=== PATIENT | male | born 1970 | race Two or more races ===

== ENCOUNTER 2018-12-24 13:02 | Inpatient (IN) | payer SELFPAY ==
[~2018-12-24] VITALS: Ht 170.2 cm; Wt 68.5 kg
[2018-12-24 13:10] VITALS: BP 132/85
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
--- NOTE | 2018-12-24 13:25 | NUR ---
ED Nurse Note: Blood and urine sent to lab. Pt with MD at bedside.
[2018-12-24] MEDS ORDERED: Sodium Chloride 2,200 ML IVLG ONE (13:30)
[2018-12-24 13:35] LABS: APPEARANCE,URINE CLEAR; BILIRUBIN, URINE NEGATIVE (NEGATIVE); COLOR,URINE BROWN; GLUCOSE, URINE (UA) NEGATIVE (NEGATIVE); KETONES,URINE 2+ (NEGATIVE); LEUKOCYTE ESTERASE ,URINE 1+ (NEGATIVE); NITRITE,URINE NEGATIVE (NEGATIVE); PH,URINE 6 (4.5-8.0); PROTEIN,URINE 3+ (NEGATIVE); UROBILINOGEN,URINE 4 MG/DL (0.0-1.0)
--- NOTE | 2018-12-24 13:37 | Emergency Room Report ---
History of Present Illness General Chief Complaint: Altered Mental Status Source: EMS Present Illness HPI Patient brought in by paramedics for altered level of consciousness Patient was found on the ground No obvious signs of trauma at the scene patient here does not provide any input patient is moaning and making indistinguishable sounds During examination Airway appears intact however there is some fine crackles noted upon initial arrival There was no vomiting Allergies: Coded Allergies: UNABLE TO ASSESS (Unverified , 12/24/18) Patient History Limited by: medical condition Past Medical History: see triage record Reviewed Nursing Documentation: PMH: Agreed; PSxH: Agreed Nursing Documentation-PMH Past Medical History Deferred: Pt Cognitively Impaired Review of Systems All Other Systems: limited - Other than the ones mentioned in the history of present illness all others are reviewed however they do stay limited due to the patient's mental status Physical Exam Vital Signs Date Time Temp Pulse Resp B/P (MAP) Pulse Ox O2 Delivery O2 Flow Rate FiO2 12/24/18 12:59 98.2 108 18 120/84 (96) 98 Room Air Sp02 EP Interpretation: reviewed, normal General Appearance: moderate distress - Patient appears agitated decreased arousability Head: normocephalic, atraumatic Eyes: bilateral eye other - 3 mm sluggishly reactive ENT: normal pharynx Neck: supple Respiratory: no retraction, no accessory muscle use, crackles - Bilaterally Cardiovascular #1: tachycardia Gastrointestinal: soft, no mass Musculoskeletal: other - Patient moving all 4 extremities without focal deficit localizing towards physical stimuli Neurologic: responsive - To physical stimuli otherwise incomprehensible speech decreased response Skin: no rash Lymphatic: no adenopathy Procedures Critical Care Time Critical Care Time 40 minutes for initial altered presentation concern for neurological neurosurgical emergencies not including any procedural time Medical Decision Making ER Course Patient presents altered and confused Being considered including but not limited to neurological neurosurgical, infectious process, Alcohol and drug overdose/ingestion Patient maintaining appropriate airway at this time airway intubation has not been required Patient's alcohol level is significantly elevated Liver enzymes also mildly elevated with elevated lipase CT imaging and x-ray pending patient's care is being Endorsed to my oncoming physician and patient will require repeat evaluation and continue work-up Patient is initiated for further inpatient care given the significant alcohol ingestion Labs Test 12/24/18 13:14 12/24/18 13:30 White Blood Count 4.1 K/UL (4.8-10.8) Red Blood Count 5.61 M/UL (4.70-6.10) Hemoglobin 10.7 G/DL (14.2-18.0) Hematocrit 36.9 % (42.0-52.0) Mean Corpuscular Volume 66 FL (80-99) Mean Corpuscular Hemoglobin 19.1 PG (27.0-31.0) Mean Corpuscular Hemoglobin Concent 29.0 G/DL (32.0-36.0) Red Cell Distribution Width 20.1 % (11.6-14.8) Platelet Count 177 K/UL (150-450) Mean Platelet Volume 5.2 FL (6.5-10.1) Neutrophils (%) (Auto) % (45.0-75.0) Lymphocytes (%) (Auto) % (20.0-45.0) Monocytes (%) (Auto) % (1.0-10.0) Eosinophils (%) (Auto) % (0.0-3.0) Basophils (%) (Auto) % (0.0-2.0) Urine Color Brown Urine Appearance Clear Urine pH 6 (4.5-8.0) Urine Specific [place] 1.010 (1.005-1.035) Urine Protein 3+ (NEGATIVE) Urine Glucose (UA) Negative (NEGATIVE) Urine Ketones 2+ (NEGATIVE) Urine Blood 5+ (NEGATIVE) Urine Nitrite Negative (NEGATIVE) Urine Bilirubin Negative (NEGATIVE) Urine Urobilinogen 4 MG/DL (0.0-1.0) Urine Leukocyte Esterase 1+ (NEGATIVE) Urine RBC 60-80 /HPF (0 - 0) Urine WBC 0-2 /HPF (0 - 0) Urine Squamous Epithelial Cells Occasional /LPF Urine Bacteria None /HPF (NONE) Sodium Level 136 MMOL/L (136-145) Potassium Level 3.6 MMOL/L (3.5-5.1) Chloride Level 99 MMOL/L (98-107) Carbon Dioxide Level 22 MMOL/L (21-32) Anion Gap 15 mmol/L (5-15) Blood Urea Nitrogen 9 mg/dL (7-18) Creatinine 0.7 MG/DL (0.55-1.30) Estimat Glomerular Filtration Rate > 60 mL/min (>60) Glucose Level 101 MG/DL (74-106) Calcium Level 7.3 MG/DL (8.5-10.1) Total Bilirubin 1.9 MG/DL (0.2-1.0) Direct Bilirubin 1.4 MG/DL (0.0-0.3) Aspartate Amino Transf (AST/SGOT) 476 U/L (15-37) Alanine Aminotransferase (ALT/SGPT) 215 U/L (12-78) Alkaline Phosphatase 327 U/L (46-116) Total Creatine Kinase 232 U/L (26-308) Creatine Kinase MB 2.7 NG/ML (0.0-3.6) Creatine Kinase MB Relative Index 1.1 Troponin I 0.047 ng/mL (0.000-0.056) Total Protein 7.4 G/DL (6.4-8.2) Albumin 2.7 G/DL (3.4-5.0) Globulin 4.7 g/dL Albumin/Globulin Ratio 0.6 (1.0-2.7) Lipase 1210 U/L (73-393) Urine Opiates Screen Negative (NEGATIVE) Urine Barbiturates Screen Negative (NEGATIVE) Phencyclidine (PCP) Screen Negative (NEGATIVE) Urine Amphetamines Screen Negative (NEGATIVE) Urine Benzodiazepines Screen Negative (NEGATIVE) Urine Cocaine Screen Negative (NEGATIVE) Urine Marijuana (THC) Screen Negative (NEGATIVE) Serum Alcohol 585 mg/dL Arterial Blood pH 7.440 (7.350-7.450) Arterial Blood Partial Pressure CO2 30.8 mmHg (35.0-45.0) Arterial Blood Partial Pressure O2 77.3 mmHg (75.0-100.0) Arterial Blood HCO3 20.4 mmol/L (22.0-26.0) Arterial Blood Oxygen Saturation 92.2 % (95-100) Arterial Blood Base Excess -2.8 (-2-2) Eddy Test Positive Rhythm Strip Diag. Results EP Interpretation: yes Rate: 110 Rhythm: no PVC's, no ectopy, other - Sinus tach Last Vital Signs Date Time Temp Pulse Resp B/P (MAP) Pulse Ox O2 Delivery O2 Flow Rate FiO2 12/24/18 12:59 98.2 108 18 120/84 (96) 98 Room Air Status: improved Disposition: ADMITTED INPATIENT Condition: Critical Merna Freeman DO Dec 24, 2018 13:37
[2018-12-24 13:38] LABS: HEMATOCRIT 36.9 % (42.0-52.0); HEMOGLOBIN 10.7 G/DL (14.2-18.0); MEAN CORPUSCULAR VOLUME 66 FL (80-99); PLATELET COUNT 177 K/UL (150-450); RED BLOOD COUNT 5.61 M/UL (4.70-6.10); RED CELL DISTRIBUTION WIDTH 20.1 % (11.6-14.8); WHITE BLOOD COUNT 4.1 K/UL (4.8-10.8)
[2018-12-24 13:46] LABS: ANION GAP 15 mmol/L (5-15); BLOOD UREA NITROGEN 9 mg/dL (7-18); CALCIUM 7.3 MG/DL (8.5-10.1); CARBON DIOXIDE 22 MMOL/L (21-32); CHLORIDE 99 MMOL/L (98-107); CREATININE 0.7 MG/DL (0.55-1.30); POTASSIUM 3.6 MMOL/L (3.5-5.1); SODIUM 136 MMOL/L (136-145)
--- NOTE | 2018-12-24 13:47 | NUR ---
ED Nurse Note: RT with pt. O2 94%
[2018-12-24 14:00] LABS: ALANINE AMINOTRANSFERASE 215 U/L (12-78); ALBUMIN 2.7 G/DL (3.4-5.0); ALBUMIN/GLOBULIN RATIO 0.6 (1.0-2.7); ALKALINE PHOSPHATASE 327 U/L (46-116); ASPARTATE AMINO TRANSFERASE 476 U/L (15-37); BILIRUBIN,DIRECT 1.4 MG/DL (0.0-0.3); BILIRUBIN,TOTAL 1.9 MG/DL (0.2-1.0); CKMB 2.7 NG/ML (0.0-3.6); CREATINE KINASE 232 U/L (26-308)
[2018-12-24 14:08] VITALS: BP 129/80
--- NOTE | 2018-12-24 14:08 | NUR ---
ED Nurse Note: Chest x-ray complete. Pt sent to CT.
[2018-12-24] MEDS ORDERED: Midazolam 2mg/2ml Inj IVP ONE ×3 (15:45→17:45)
[2018-12-24] MEDS ORDERED: UNOBMED (16:16)
--- NOTE | 2018-12-24 17:12 | Diagnostic Imaging Report ---
Indications: Altered mental status Technique: Spiral acquisitions obtained through the brain. Angled axial and coronal 5 x 5 mm slices were reconstructed. Total dose length product 1172 mGycm. CTDI vol(s) 60 mGy. Dose reduction achieved using automated exposure control Comparison: None. Findings: There is equivocal slight thickening of the posterior falx which if real could indicate a tiny parafalcine subdural hematoma. This measures less than 1 mm thick. No mass effect nor midline shift. Normal leroy-white differentiation. Normal size ventricles and extra-axial CSF spaces. Visualized orbits are unremarkable. There is an acuity indeterminate nasal fracture deformity. There is sphenoid and ethmoid sinus disease. There is an acuity indeterminate inferior orbital floor fracture deformity on the left. This demonstrates some herniation of the inferior rectus muscle into the defect. Impression: Doubt but cannot exclude small posterior parafalcine subdural hematoma. No significant mass effect No acute intracranial bleed or mass effect otherwise Age-indeterminate nasal and inferior orbital wall fracture deformities This agrees with the preliminary interpretation provided overnight by [facility], with some additional findings. The CT scanner at [facility] is accredited by the [employer] and the scans are performed using protocols designed to limit radiation exposure to as low as reasonably achievable to attain images of sufficient resolution adequate for diagnostic evaluation.
--- NOTE | 2018-12-24 17:16 | NUR ---
Face sheet and CT report faxed to [facility].
[2018-12-24] MEDS ORDERED: Piperacillin/Tazobactam 3.375 GM in NS 110 ML IVPB ONE (17:30)
[2018-12-24] MEDS ORDERED: Vancomycin 1 GM in D5W 275 ML IVPB ONE (17:30)
--- NOTE | 2018-12-24 17:44 | Emergency Room Report ---
Physical Exam Please see addenda on Dr. Freeman's note. This is mainly to document additional diagnoses. Vital Signs Date Time Temp Pulse Resp B/P (MAP) Pulse Ox O2 Delivery O2 Flow Rate FiO2 12/24/18 12:59 98.2 108 18 120/84 (96) 98 Room Air Sp02 EP Interpretation: reviewed, normal General Appearance: lethargic, other - Alcohol smell and disheveled Eyes: bilateral eye PERRL, bilateral eye abnormal EOM, bilateral eye Scleral Injection ENT: dry mucus membranes Neck: full range of motion, supple Respiratory: lungs clear, normal breath sounds Cardiovascular #1: regular rate, rhythm, no edema Cardiovascular #2: 2+ radial (R) Gastrointestinal: non tender, decreased bowel sounds, overweight Musculoskeletal: normal range of motion Neurologic: responsive, other - Lethargic Psychiatric: other Skin: no rash Critical Care Time Critical Care Time Total Critical Care Time: 90 alcohol intoxication, pancreatitis, min bedside evaluation and treatment excludes procedures (EKG). Reason for critical care: Possible subdural hematoma, sedation for CT scans treatment of elevated lactic acid fluid resuscitation, antibiotics, Possible complications: hypotension, hypertension, [place], shock, arrhythmias, metabolic acidosis, end organ damage, respiratory failure. Interventions: Versed sedation, repeated evaluations, discussion with [facility], discussion with admitting physician, discussion with radiology, Course: Patient signed out to me for admission with alcohol intoxication and pancreatitis. CT is pending. Several times that CT scan undertaken. Sedation for CT undertaken. CT head with possible subdural. Resented to [facility] and declined. Discovered elevated lactic acid. Fluid resuscitation continued. Antibiotics prophylactically begun. After initial sedation patient with some respiratory compromise and needing intervention withdrawal left. This resolved spontaneously. CT the abdomen reviewed. Discussed with admitting physician. Improved but still delirious. Risk of alcohol withdrawal noted. Thiamine ordered. Consultations: nursing staff, radiology techs, admitting physician, [facility] neurosurgeon, respiratory therapy Tolerated well condition = critical Medical Decision Making Diagnostic Impression: Primary Impression: Alcohol poisoning Qualified Codes: T51.94XA - Toxic effect of unspecified alcohol, undetermined , initial encounter Additional Impressions: Altered mental status Qualified Codes: R41.82 - Altered mental status, unspecified Subdural hematoma - parafalcian - possible Elevated lactic acid level Pancreatitis Qualified Codes: K85.20 - Alcohol induced acute pancreatitis without necrosis or infection Elevated liver function tests ER Course Please see notes an addendum on 's note. At least [address] scan undertaken. Finally able to perform with sedation. CO2 monitoring and pulse oximetry while patient in CT scan. Patient stable after sedation for CT scans. Requesting water and perseverating. Discussed with Dr. Olivarez and patient admitted to telemetry. Risk of alcohol withdrawal noted. Discussion of subdural with [facility] led to non-transfer and supportive medical treatment. Consideration of MRI. Elevated lactic acid treated with IV hydration. No identified source of infection. Prophylactic antibiotics started. Thiamine given. Improved but still delirious. Admitted to telemetry. Laboratory Tests Test 12/24/18 13:14 12/24/18 13:30 12/24/18 15:36 12/24/18 18:25 White Blood Count 4.1 K/UL (4.8-10.8) L Red Blood Count 5.61 M/UL (4.70-6.10) Hemoglobin 10.7 G/DL (14.2-18.0) L Hematocrit 36.9 % (42.0-52.0) L Mean Corpuscular Volume 66 FL (80-99) L Mean Corpuscular Hemoglobin 19.1 PG (27.0-31.0) L Mean Corpuscular Hemoglobin Concent 29.0 G/DL (32.0-36.0) L Red Cell Distribution Width 20.1 % (11.6-14.8) H Platelet Count 177 K/UL (150-450) Mean Platelet Volume 5.2 FL (6.5-10.1) L Neutrophils (%) (Auto) % (45.0-75.0) Lymphocytes (%) (Auto) % (20.0-45.0) Monocytes (%) (Auto) % (1.0-10.0) Eosinophils (%) (Auto) % (0.0-3.0) Basophils (%) (Auto) % (0.0-2.0) Differential Total Cells Counted 100 Neutrophils % (Manual) 58 % (45-75) Lymphocytes % (Manual) 33 % (20-45) Monocytes % (Manual) 8 % (1-10) Eosinophils % (Manual) 0 % (0-3) Basophils % (Manual) 1 % (0-2) Band Neutrophils 0 % (0-8) Platelet Estimate Adequate Platelet Morphology Normal Hypochromasia 2+ Anisocytosis 2+ Microcytosis 3+ Urine Color Brown Urine Appearance Clear Urine pH 6 (4.5-8.0) Urine Specific [place] 1.010 (1.005-1.035) Urine Protein 3+ (NEGATIVE) H Urine Glucose (UA) Negative (NEGATIVE) Urine Ketones 2+ (NEGATIVE) H Urine Blood 5+ (NEGATIVE) H Urine Nitrite Negative (NEGATIVE) Urine Bilirubin Negative (NEGATIVE) Urine Urobilinogen 4 MG/DL (0.0-1.0) H Urine Leukocyte Esterase 1+ (NEGATIVE) H Urine RBC 60-80 /HPF (0 - 0) H Urine WBC 0-2 /HPF (0 - 0) Urine Squamous Epithelial Cells Occasional /LPF Urine Bacteria None /HPF (NONE) Sodium Level 136 MMOL/L (136-145) Potassium Level 3.6 MMOL/L (3.5-5.1) Chloride Level 99 MMOL/L (98-107) Carbon Dioxide Level 22 MMOL/L (21-32) Anion Gap 15 mmol/L (5-15) Blood Urea Nitrogen 9 mg/dL (7-18) Creatinine 0.7 MG/DL (0.55-1.30) Estimate Glomerular Filtration Rate > 60 mL/min (>60) Glucose Level 101 MG/DL (74-106) Calcium Level 7.3 MG/DL (8.5-10.1) L Total Bilirubin 1.9 MG/DL (0.2-1.0) H Direct Bilirubin 1.4 MG/DL (0.0-0.3) H Aspartate Amino Transferase (AST) 476 U/L (15-37) H Alanine Aminotransferase (ALT) 215 U/L (12-78) H Alkaline Phosphatase 327 U/L (46-116) H Total Creatine Kinase 232 U/L (26-308) Creatine Kinase MB 2.7 NG/ML (0.0-3.6) Creatine Kinase MB Relative Index 1.1 Troponin I 0.047 ng/mL (0.000-0.056) Total Protein 7.4 G/DL (6.4-8.2) Albumin 2.7 G/DL (3.4-5.0) L Globulin 4.7 g/dL Albumin/Globulin Ratio 0.6 (1.0-2.7) L Lipase 1210 U/L (73-393) H Urine Opiates Screen Negative (NEGATIVE) Urine Barbiturates Screen Negative (NEGATIVE) Phencyclidine (PCP) Screen Negative (NEGATIVE) Urine Amphetamines Screen Negative (NEGATIVE) Urine Benzodiazepines Screen Negative (NEGATIVE) Urine Cocaine Screen Negative (NEGATIVE) Urine Marijuana (THC) Screen Negative (NEGATIVE) Serum Alcohol 585 mg/dL Arterial Blood pH 7.440 (7.350-7.450) Arterial Blood Partial Pressure CO2 30.8 mmHg (35.0-45.0) L Arterial Blood Partial Pressure O2 77.3 mmHg (75.0-100.0) Arterial Blood HCO3 20.4 mmol/L (22.0-26.0) L Arterial Blood Oxygen Saturation 92.2 % (95-100) L Arterial Blood Base Excess -2.8 (-2-2) L Eddy Test Positive Lactic Acid Level 5.00 mmol/L (0.4-2.0) H 5.40 mmol/L (0.66-2.22) H Ammonia 24 umol/L (11-32) Rhythm Strip Diag. Results EP Interpretation: yes Rhythm: no PVC's, no ectopy, other - Sinus tachycardia Chest X-Ray Diagnostic Results Chest X-Ray Diagnostic Results : Chest X-Ray Ordered: Yes # of Views/Limited/Complete: 1 View Indication: Other EP Interpretation: Yes Interpretation: no consolidation, no effusion, no pneumothorax Impression: No acute disease Electronically Signed by: Electronically signed by Hans Patel MD CT/MRI/US Diagnostic Results CT/MRI/US Diagnostic Results #1: Imaging Test Ordered: Head Impression Impression: - Possible thin posterior parafalcine 0.1cm thick subdural hematoma. - No mass effect or shift. - Otherwise unremarkable intracranial structures. - Right scalp possible small hematoma. - Minimal cerebrovascular ASVD. CT/MRI/US Diagnostic Results #2: Imaging Test Ordered: Abdomen pelvis Impression Scattered groundglass nodular opacities in the dependent left base could represent some component of atelectasis, although aspiration or pneumonia could have this appearance as well. This can be followed on subsequent imaging. -Right base ill-defined groundglass 0.9 cm nodule axial image 2. - Recommend outpatient unenhanced CT chest in 2-3 weeks to further evaluate lung findings. -Severely distended urinary bladder, which could be a cause for patient's pain. -Normal appendix. -Tiny punctate 0.1 cm calcification within the uterus along the expected course of the penile urethra axial image 147 could represent a small stone within the urethra. -Otherwise no acute abnormality identified to account for patient's presentation. -At least 5 right nonobstructing nephroliths measuring up to 0.6 cm. -At least 5 left nonobstructing nephroliths measuring up to 0.5 cm. -Large nonobstructed hiatal hernia. -Hepatic steatosis, correlate to exclude steatohepatitis. -Hyperdense gallbladder contents could represent vicarious excretion of contrast if there has been a recent contrast-enhanced study, alternatively this could represent gallbladder sludge. No findings to suggest acute cholecystitis. -Left adrenal 3.4cm benign myelolipoma with coleen fat attenuation. -Scattered ASVD. -Multilevel age-related degenerative spine findings osteopenia. Last Vital Signs Date Time Temp Pulse Resp B/P (MAP) Pulse Ox O2 Delivery O2 Flow Rate FiO2 12/25/18 00:00 130 12/25/18 00:00 98.0 20 150/70 (96) 96 12/24/18 20:30 Room Air Status: improved Disposition: ADMITTED INPATIENT Condition: Critical Referrals: NOT CHOSEN IPA/,REFERRING (PCP) Hans Patel MD Dec 24, 2018 17:44
--- NOTE | 2018-12-24 17:52 | NUR ---
To CT-abdomen on a stretcher.
[2018-12-24] MEDS ORDERED: Thiamine HCl 100 MG in D5W 55 ML IVPB STA (18:36)
--- NOTE | 2018-12-24 18:45 | NUR ---
ED Nurse Note: Pt is awake and is resting well.
--- NOTE | 2018-12-24 18:48 | Diagnostic Imaging Report ---
Indication: Abdominal pain Technique: Spiral acquisitions obtained through the abdomen and pelvis. No oral contrast utilized, per emergency room physician request No IV contrast utilized, per emergency room physician request.. Multiplanar reconstructions were generated. Total dose length product 1194 mGycm. CTDIvol(s) 20 mGy. Dose reduction achieved using automated exposure control Comparison: None Findings: The appendix is normal. Mural fat is seen in the wall of the ascending colon. There is no evidence of diverticulosis or diverticulitis. No small bowel distention. No free or loculated intraperitoneal gas or fluid is evident. There is a large hiatal hernia which contains over half of the stomach. The duodenum is unremarkable. Lack of IV contrast limits assessment of the solid organs. The liver is markedly hypoattenuating. It is somewhat enlarged. No gross focal abnormality. The gallbladder, bile ducts, pancreas, spleen, right adrenal are unremarkable. The left adrenal demonstrates a fat attenuation 3.4 cm mass. Both kidneys demonstrate calyceal calculi. There is nonspecific perinephric fat stranding bilaterally. No ureteral calculi, hydronephrosis, or hydroureter demonstrated. The bladder is distended. No pelvic mass or adenopathy. There are one or more punctate calcifications within the penis. Included lung bases demonstrate a peripheral 5 mm opacity in the left lower lobe. The highest cuts demonstrate an incompletely included 12 mm area of groundglass opacity in the right lower lobe. Atelectatic changes and areas of pleural thickening are seen in the inferior left lung. The bones demonstrate mild degenerative spondylosis changes. Impression: No definite acute process Large hiatal hernia Enlarged fatty liver Left adrenal myelolipoma Nonobstructive bilateral intrarenal calculi Bilateral basilar pulmonary opacities. Recommend follow-up CT in 6-12 months Distended bladder Now calcifications. Suspect that these represent physiologic corporal calcifications although the possibility of intraureteral calculi should also be considered. This agrees with the preliminary interpretation provided overnight by [email or web address]. The CT scanner at [facility] is accredited by the [employer] and the scans are performed using protocols designed to limit radiation exposure to as low as reasonably achievable to attain images of sufficient resolution adequate for diagnostic evaluation.
--- NOTE | 2018-12-24 19:20 | NUR ---
HAND-OFF: Report given to JUANA Jessica.
--- NOTE | 2018-12-24 19:21 | NUR ---
ED Nurse Note: report received from jamie quiñonez .pt in bed VSS
--- NOTE | 2018-12-24 19:44 | NUR ---
ED Nurse Note: Report given to JUANA Isbell
--- NOTE | 2018-12-24 19:50 | NUR ---
ED Nurse Note: pt was brought up to room 239 accompanied by RN and planetarium technician with monitor box in stable condition. Belonging list signed.
[2018-12-24 20:00] VITALS: BP 150/95
--- NOTE | 2018-12-24 20:00 | NUR ---
NURSE NOTES: Pt admitted from ER. Given report from JUANA Jessica. Pt is resting on the bed and drowsy and confused and agitated. Unable to communicate and not answer the question. Unable to get any information at this time. Given realty orientation. IV site intact and no sign of infiltration noted. Applied Tele monitor. Cleaned Pt and applied lotion and cream. On Room air and no sign of respiratory distress noted. Checked belonging list. Given admission instruction and smoking cessation but he doesn't understand at this time. Placed fall precaution. Admission order received from Dr. Olivarez by previous nurse. Will continue to monitor any change of condition.
[2018-12-24] MEDS: D5 1/2NS w/KCl 30mEq 1000ml 1,000 ML IV SCH (21:00)
[2018-12-24] MEDS ORDERED: Folic Acid 1 MG, Magnesium Sulfate 2,000 MG, Multivitamin - 12 Injection 10 ML in Sodiu... IV SCH (22:00)
[2018-12-24] MEDS: LORazepam Inj 2mg/ml 1ml IV PRN (23:28)
--- NOTE | 2018-12-24 23:28 | NUR ---
NURSE NOTES: Pt is resting on the bed and confused agitated and anxious and resisting care. Given realty orientation but doesn't understand. Given ativan as ordered. Pt strongly refused insert Strange cath. Explained benefits and risks. On Tele monitor with ST. Will continue to monitor any change of condition.
[2018-12-25] VITALS: BP 150/70
--- NOTE | 2018-12-25 01:00 | NUR ---
NURSE NOTES: Pt is resting on the bed and still agitated and anxious. Still strongly refused insert Strange cath at this time. Will continue to monitor any change of condition.
[2018-12-25] MEDS: Piperacillin/Tazobactam 3.375 GM in NS 110 ML IVPB SCH ×3 (01:58→18:07)
--- NOTE | 2018-12-25 02:00 | NUR ---
NURSE NOTES: Pt void 900cc urine but noted hematuria. MD aware. Will continue to monitor any change of condition.
[2018-12-25] MEDS: D5 1/2NS w/KCl 30mEq 1000ml 1,000 ML IV SCH ×4 (03:40→23:40)
[2018-12-25 04:00] VITALS: BP 134/70
[2018-12-25 05:11] LABS: BASOPHILS % (AUTO) 1.6 % (0.0-2.0); EOSINOPHILS % (AUTO) 0.1 % (0.0-3.0); HEMATOCRIT 28.1 % (42.0-52.0); HEMOGLOBIN 8.4 G/DL (14.2-18.0); LYMPHOCYTES % (AUTO) 8.5 % (20.0-45.0); MEAN CORPUSCULAR VOLUME 66 FL (80-99); MONOCYTES % (AUTO) 8.1 % (1.0-10.0); NEUTROPHILS % (AUTO) 81.8 % (45.0-75.0); PLATELET COUNT 139 K/UL (150-450); RED BLOOD COUNT 4.26 M/UL (4.70-6.10); RED CELL DISTRIBUTION WIDTH 19.7 % (11.6-14.8); WHITE BLOOD COUNT 9.2 K/UL (4.8-10.8)
[2018-12-25 05:51] LABS: ALANINE AMINOTRANSFERASE 176 U/L (12-78); ALBUMIN 2.2 G/DL (3.4-5.0); ALBUMIN/GLOBULIN RATIO 0.5 (1.0-2.7); ALKALINE PHOSPHATASE 258 U/L (46-116); AMYLASE 69 U/L (25-115); ANION GAP 12 mmol/L (5-15); ASPARTATE AMINO TRANSFERASE 348 U/L (15-37); BILIRUBIN,TOTAL 1.8 MG/DL (0.2-1.0); BLOOD UREA NITROGEN 9 mg/dL (7-18); CALCIUM 6.9 MG/DL (8.5-10.1); CARBON DIOXIDE 21 MMOL/L (21-32); CHLORIDE 103 MMOL/L (98-107); CREATINE KINASE 184 U/L (26-308); CREATININE 0.7 MG/DL (0.55-1.30); POTASSIUM 3.8 MMOL/L (3.5-5.1); SODIUM 136 MMOL/L (136-145)
[2018-12-25] MEDS: LORazepam Inj 2mg/ml 1ml IV PRN ×4 (06:19→21:38)
[2018-12-25 06:28] LABS: BILIRUBIN,DIRECT 0.9 MG/DL (0.0-0.3)
--- NOTE | 2018-12-25 06:30 | NUR ---
NURSE NOTES: Pt is resting on the bed and awake and confused and agitated. Pt Pulled out of IV. Reminded Pt do not remove IV but he doesn't understand. Still noted Tachycardia HR 130-140's. Still noted hematuria and refused insert Strange cath. Notified Dr. Olivarez.
[2018-12-25] MEDS ORDERED: LORazepam Inj 2mg/ml 1ml IM SCH (07:00)
--- NOTE | 2018-12-25 07:10 | NUR ---
NURSE NOTES: RECEIVED BED SIDE REPORT FROM FROM [facility] AIDE OF NOC SHIFT. RECEIVE PT RESTING IN BED COMFORTABLY AT THIS TIME.NO EVIDENCE OF AGITATION NOTED AT THIS TIME.PT RECEIVING IVF,S D51/2 NS WITH 20MEQ OF KCL @ 150cc/hrs CONNECT TO H.L ON RT HAND.IVF,S INFUSSING WELL. PT IS NPO AT THIS TIME PER M.D ORDERS.WILL CONT TO MONITOR.
--- NOTE | 2018-12-25 07:31 | NUR ---
HAND-OFF: Report given to JUANA Arora. Pt is resting on the bed and no sign of acute distress noted.
[2018-12-25 08:00] VITALS: BP 130/70
[2018-12-25] MEDS: Pantoprazole Inj IVP SCH (10:22)
[2018-12-25 12:00] VITALS: BP 150/99
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
[2018-12-25 16:00] VITALS: BP 150/96
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
--- NOTE | 2018-12-25 19:30 | NUR ---
NURSE NOTES: Given report from Ulysses, Pt is resting on the bed and awake and confused agitated. Given realty orientation. IV site intact and no sign of infiltration noted. Reminded Pt do not remove IV line by himself. Denied Pain at this time. On clear liquid diet and tolerated well. According to previous nurse, Pt has episode of fever. Notified to Dr. Olivarez. Will continue to monitor any change of condition.
[2018-12-25 20:00] VITALS: BP 150/98
[2018-12-25] MEDS: Thiamine 100mg IVPB (Q24H) IVPB SCH ×2 (21:58)
[2018-12-25] MEDS: Folic Acid 1 MG, Magnesium Sulfate 2,000 MG, Multivitamin - 12 Injection 10 ML in Sodiu... IV SCH (21:58)
[2018-12-26] VITALS: BP 137/93
[2018-12-26] MEDS: Piperacillin/Tazobactam 3.375 GM in NS 110 ML IVPB SCH ×3 (02:02→18:41)
--- NOTE | 2018-12-26 02:30 | History and Physical Report ---
DATE OF ADMISSION: 12/24/2018 PERTINENT HISTORY: The patient brought in with altered level of consciousness and high alcohol level. He was found to have elevated lipase and elevated lactic acid. The patient is now alert and states he has history of hypertension, hyperlipidemia, and a stroke 3 months ago or 4 months ago with right-sided weakness. He had apparently seizures in the past. It is not clear if they are of alcohol withdrawal. PAST MEDICAL AND SURGICAL HISTORY: Past surgeries none. ALLERGIES: None known. HOME MEDICATIONS: Amlodipine, atorvastatin, aspirin. SYSTEM REVIEW: HEAD, EYES, EARS, NOSE, THROAT: Vision and hearing is good. ENDOCRINE: No known diabetes or thyroid disease. PULMONARY: No chronic cough or asthma. CARDIAC: No known angina or MS. GASTROINTESTINAL: No GI bleeding in the past. He has some vague abdominal discomfort. Denies nausea or vomiting. He was vomiting last night. GENITOURINARY: No difficulty voiding or dysuria. NEUROLOGIC: See history of present illness. PHYSICAL EXAMINATION: GENERAL: The patient is lying in bed, asking to eat. VITAL SIGNS: Temperature 98, pulse 130, respirations 20, blood pressure 130/70. HEAD, EYES, EARS, NOSE, THROAT: Oral mucosa is moist. There is faint scleral icterus. NECK: No adenopathy. LUNGS: Clear. HEART: Regular rhythm and tachycardic. ABDOMEN: Soft. I am unable to feel liver or spleen edge. EXTREMITIES: No edema, cyanosis, or clubbing. NEUROLOGIC: He is alert and responsive. Ocular motions intact in all directions. Smile symmetric. Tongue is midline. He moves all extremities. Note, he has received multiple doses of Ativan prior to my exam. LABORATORY DATA: Labs were reviewed. IMPRESSION: 1. Alcoholism and at risk for alcoholic withdrawal. 2. Pancreatitis, acute. 3. Elevated lactic acid, likely due to alcoholic lactic acidosis. PLAN: Vigorous IV hydration. Empiric antibiotics. Benzodiazepines for alcohol withdrawal. we will start clear liquids. Say Olivarez M.D. DR: Marilyn JOB#: [id number] CC:
[2018-12-26 04:00] VITALS: BP 150/98
[2018-12-26 04:27] LABS: BASOPHILS % (AUTO) 1.6 % (0.0-2.0); EOSINOPHILS % (AUTO) 1.1 % (0.0-3.0); HEMATOCRIT 30.9 % (42.0-52.0); HEMOGLOBIN 9.2 G/DL (14.2-18.0); LYMPHOCYTES % (AUTO) 14.5 % (20.0-45.0); MEAN CORPUSCULAR VOLUME 66 FL (80-99); MONOCYTES % (AUTO) 7.8 % (1.0-10.0); NEUTROPHILS % (AUTO) 75.1 % (45.0-75.0); PLATELET COUNT 140 K/UL (150-450); RED BLOOD COUNT 4.65 M/UL (4.70-6.10); RED CELL DISTRIBUTION WIDTH 20.7 % (11.6-14.8); WHITE BLOOD COUNT 5.1 K/UL (4.8-10.8)
[2018-12-26 05:12] LABS: ALANINE AMINOTRANSFERASE 157 U/L (12-78); ALBUMIN 2.3 G/DL (3.4-5.0); ALBUMIN/GLOBULIN RATIO 0.5 (1.0-2.7); ALKALINE PHOSPHATASE 290 U/L (46-116); ANION GAP 8 mmol/L (5-15); ASPARTATE AMINO TRANSFERASE 312 U/L (15-37); BILIRUBIN,TOTAL 2.9 MG/DL (0.2-1.0); BLOOD UREA NITROGEN 5 mg/dL (7-18); CALCIUM 7.5 MG/DL (8.5-10.1); CARBON DIOXIDE 24 MMOL/L (21-32); CHLORIDE 97 MMOL/L (98-107); CREATININE 0.7 MG/DL (0.55-1.30); POTASSIUM 3.6 MMOL/L (3.5-5.1); SODIUM 129 MMOL/L (136-145)
[2018-12-26 05:17] LABS: BILIRUBIN,DIRECT 1.1 MG/DL (0.0-0.3)
[2018-12-26] MEDS: D5 1/2NS w/KCl 30mEq 1000ml 1,000 ML IV SCH (06:20)
--- NOTE | 2018-12-26 07:14 | NUR ---
HAND-OFF: Report given to JUANA Sen. Pt is resting on the bed and no sign of acute distress noted.
--- NOTE | 2018-12-26 07:25 | NUR ---
NURSE NOTES: Report received from JUANA Isbell. Pt is resting on the bed. Patient is AAO x 2. Patient on cardiac surgeon. Patient is breathing even and unlabored on room air. Patient able to make needs known. IV site intact and patent. On clear liquid diet. Patient stated moderate abdominal pain. Will continue plan of care.
[2018-12-26 08:00] VITALS: BP 159/93
[2018-12-26] MEDS: Pantoprazole Inj IVP SCH (08:10)
--- NOTE | 2018-12-26 09:01 | General Progress Note ---
Assessment/Plan Problem List: (1) Alcohol poisoning ICD Codes: T51.91XA - Toxic effect of unspecified alcohol, accidental ( unintentional), initial encounter SNOMED: 55164308 Qualifiers: Qualified Codes: T51.94XA - Toxic effect of unspecified alcohol, undetermined, initial encounter (2) Elevated lactic acid level ICD Codes: R79.89 - Other specified abnormal findings of blood chemistry SNOMED: 6786930 (3) Pancreatitis ICD Codes: K85.90 - Acute pancreatitis without necrosis or infection, unspecified SNOMED: 24693082, 616549683 Qualifiers: Qualified Codes: K85.20 - Alcohol induced acute pancreatitis without necrosis or infection (4) Elevated liver function tests ICD Codes: R94.5 - Abnormal results of liver function studies SNOMED: 161852050, 091122448 (5) Altered mental status ICD Codes: R41.82 - Altered mental status, unspecified SNOMED: 301909900, 907326462 Qualifiers: Qualified Codes: R41.82 - Altered mental status, unspecified Assessment/Plan: clears, iv fluids alcohol withdrawal protocol Subjective Constitutional: Reports: weakness HEENT: Reports: no symptoms Cardiovascular: Reports: no symptoms Respiratory: Reports: no symptoms Gastrointestinal/Abdominal: Reports: no symptoms, abdominal pain Genitourinary: Reports: no symptoms Neurologic/Psychiatric: Reports: no symptoms Endocrine: Reports: no symptoms Hematologic/Lymphatic: Reports: no symptoms Allergies: Coded Allergies: UNABLE TO ASSESS (Unverified , 12/24/18) Objective Last 24 Hour Vital Signs Date Time Temp Pulse Resp B/P (MAP) Pulse Ox O2 Delivery O2 Flow Rate FiO2 12/26/18 04:00 107 12/26/18 04:00 Room Air 12/26/18 04:00 99.2 105 18 150/98 (115) 97 12/26/18 00:00 106 12/26/18 00:00 99.1 113 18 137/93 (108) 98 12/26/18 00:00 Room Air 12/25/18 20:00 100.0 122 18 150/98 (115) 97 12/25/18 20:00 144 12/25/18 20:00 Room Air 12/25/18 16:00 Room Air 12/25/18 16:00 141 12/25/18 16:00 100.8 124 21 150/96 (114) 97 12/25/18 12:00 Room Air 12/25/18 12:00 97.8 119 20 150/99 (116) 96 12/25/18 12:00 131 Intake and Output 12/25/18 12/26/18 19:00 07:00 Intake Total 1550 ml 2390.2 ml Output Total 801 ml Balance 749 ml 2390.2 ml Intake Oral 350 ml 500 ml IV Total 1200 ml 1890.2 ml Output Urine Total 800 ml Stool Total 1 ml # Voids 10 # Bowel Movements 9 Laboratory Tests 12/25/18 10:10: Lactic Acid Level 2.50H 12/26/18 03:25: White Blood Count 5.1, Red Blood Count 4.65L, Hemoglobin 9.2L, Hematocrit 30.9L , Mean Corpuscular Volume 66L, Mean Corpuscular Hemoglobin 19.8L, Mean Corpuscular Hemoglobin Concent 29.7L, Red Cell Distribution Width 20.7H, Platelet Count 140L, Mean Platelet Volume 5.4L, Neutrophils (%) (Auto) 75.1H, Lymphocytes (%) (Auto) 14.5L, Monocytes (%) (Auto) 7.8, Eosinophils (%) (Auto) 1.1, Basophils (%) (Auto) 1.6, Sodium Level 129L, Potassium Level 3.6, Chloride Level 97L, Carbon Dioxide Level 24, Anion Gap 8, Blood Urea Nitrogen 5L, Creatinine 0.7, Estimat Glomerular Filtration Rate > 60, Glucose Level 109H, Calcium Level 7.5L, Total Bilirubin 2.9H, Direct Bilirubin 1.1H, Aspartate Amino Transf (AST/SGOT) 312H, Alanine Aminotransferase (ALT/SGPT) 157H, Alkaline Phosphatase 290H, Total Protein 6.7, Albumin 2.3L, Globulin 4.4, Albumin/Globulin Ratio 0.5L, Lipase > 2000H Height (Feet): 5 Height (Inches): 7.00 Weight (Pounds): 166 General Appearance: no apparent distress, alert EENT: normal ENT inspection Neck: normal alignment Cardiovascular: normal rate, regular rhythm Respiratory/Chest: lungs clear Abdomen: tender Say Olivarez MD Dec 26, 2018 09:01
[2018-12-26] MEDS: LORazepam 1mg tab ORAL SCH ×3 (10:11→20:30)
--- NOTE | 2018-12-26 11:09 | NUR ---
CASE MANAGEMENT:REVIEW 12/26/18 SI: ALCOHOL POISONING. PANCREATITIS ENCEPHALOPATHY 99.1 113 18 137/93 98% ON RA H/H-9.2/30.9 NA-129 CA-7.5 LIPASE>2000 IS: IV ZOSYN Q8HRS IV BANANA BAG IVF@125/HR IV THIAMINE Q24 IV PROTONIX QD : STEP DOWN UNIT
[2018-12-26 12:00] VITALS: BP 138/98
[2018-12-26] MEDS: LORazepam Inj 2mg/ml 1ml IV PRN (12:30)
[2018-12-26] MEDS: traMADol 50mg tab ORAL PRN ×2 (14:54→21:35)
[2018-12-26 16:00] VITALS: BP 117/72
--- NOTE | 2018-12-26 16:43 | NUR ---
Social Service Note SW and CM coordinator (provided Beninese translation) met with patient to assess for homelessness. Patient states he began excessively drinking for the past 4 months when his kicked him out of the house. [place] has been in the [place] for 15 years. 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 Patient states he is residing at [facility] on [facility] and will return to this location upon discharge. Patient doesn't have an emergency contact. Patient indicated wanting to leave AMA because he is hungry. Nursing explained patient's medical condition and the reason for no solid food. Patient was agreeable to continued stay however indicates he may leave later today or tomorrow. Patient stated he understood the severity of his drinking and would stop. Patient states he gets support and the home he is residing. Patient screen for [facility]. Homeless check list to be completed. Community clinic list to be provided to patient upon discharge. Prescriptions to be provided if indicated upon discharge. Will continue to monitor and assist as needed.
--- NOTE | 2018-12-26 17:30 | NUR ---
NURSE NOTES: 17:00- Patient attempted to leave the floor. patient had street clothes on, monitor removed, and IV heplocked removed. With use of Bruneian translation from JUANA Arora, explain risks of AMA and the need to wait for the doctor. Patient states he needs to leave now. Patient signed homeless discharge form and AMA form. Heart monitor removed and ID band removed. 17:30- Patient waited for bus token and ate dinner. Afterwards, the primary nurse escorted patient to hospital exit. After walking 25 feet, patient states he can't make it and wish to return to bed. Patient apologize and stated he wants to get better. Patient was escorted back to the room. Reapplied heart monitor and ID band. Charge nurse and nursing supervisor bit and shank department were made aware.
--- NOTE | 2018-12-26 19:30 | NUR ---
HAND-OFF: Report given to JUANA Villasenor.
--- NOTE | 2018-12-26 19:31 | NUR ---
NURSE NOTES: Received report form JUANA Sen, pt. in bed awake, A/O x's2- to name and place, no signs or symptoms of acute cardiac or respiratory distress noted, bed in lowest position and call light within easy reach, bed in lowest position and call light within easy reach, bed alarm on and side rails up x's3 and safety brakes engaged, pt. appears to be resting in bed comfortable and no distress noted, LFA 20G running D5 1/2 NS +20kcl at 125mls/hr- IV Intact and patent, safety measures continued, will continue with plan of care. Addendum: 12/26/18 at 1946 by SABA WATSON RN RN correction to message above D5NS +20meq running at 125mls/hr.
--- NOTE | 2018-12-26 19:46 | NUR ---
NURSE NOTES: Spoke to Dr. Vicente about IVF. Change to D5 NS w/ 20 meq of Potassium @75ml/hr. Endorsed to second shift supervisor nurse.
[2018-12-26 20:00] VITALS: BP 143/82
[2018-12-26] MEDS ORDERED: Thiamine HCl 100mg/ml 2 ml Inj ONE (21:31)
[2018-12-26] MEDS: Folic Acid 1 MG, Magnesium Sulfate 2,000 MG, Multivitamin - 12 Injection 10 ML in Sodiu... IV SCH (21:35)
[2018-12-26] MEDS: Thiamine 100mg IVPB (Q24H) IVPB SCH ×2 (22:18)
[2018-12-27] VITALS (7 sets, daily range): BP systolic 140–158; BP diastolic 75–102
--- NOTE | 2018-12-27 01:34 | NUR ---
NURSE NOTES: spoke with Lamin pharmacist at [facility] to run Zosyn with banana bag.
[2018-12-27] MEDS: traMADol 50mg tab ORAL PRN ×2 (01:41→05:43)
[2018-12-27] MEDS: Piperacillin/Tazobactam 3.375 GM in NS 110 ML IVPB SCH ×3 (01:42→17:57)
[2018-12-27] MEDS: LORazepam 1mg tab ORAL SCH ×3 (02:49→15:36)
[2018-12-27 05:10] LABS: BASOPHILS % (AUTO) 1.7 % (0.0-2.0); EOSINOPHILS % (AUTO) 2.9 % (0.0-3.0); HEMATOCRIT 30.8 % (42.0-52.0); HEMOGLOBIN 9.1 G/DL (14.2-18.0); LYMPHOCYTES % (AUTO) 19.2 % (20.0-45.0); MEAN CORPUSCULAR VOLUME 68 FL (80-99); NEUTROPHILS % (AUTO) 67.2 % (45.0-75.0); PLATELET COUNT 158 K/UL (150-450); RED BLOOD COUNT 4.55 M/UL (4.70-6.10); RED CELL DISTRIBUTION WIDTH 21.1 % (11.6-14.8); WHITE BLOOD COUNT 5.1 K/UL (4.8-10.8)
[2018-12-27 05:15] LABS: ANION GAP 8 mmol/L (5-15); BLOOD UREA NITROGEN 1 mg/dL (7-18); CALCIUM 7.5 MG/DL (8.5-10.1); CARBON DIOXIDE 25 MMOL/L (21-32); CHLORIDE 99 MMOL/L (98-107); CREATININE 0.5 MG/DL (0.55-1.30); POTASSIUM 2.9 MMOL/L (3.5-5.1); SODIUM 132 MMOL/L (136-145)
--- NOTE | 2018-12-27 07:25 | NUR ---
HAND-OFF: Report given to Luis AlbertoRN, pt. remains stable and no signs of distress noted. Nurse aware to f/u on abnormal am labs- K trending down.
--- NOTE | 2018-12-27 07:38 | NUR ---
NURSE NOTES: Received report from Edenilson Greenwood RN. Patient awake in bed, oriented x 2, able to follow commands but impulsive. On room air, respirations even and unlabored. Left forearm 20g D5NS with 20 meq KCl @ 75 cc/hr, no s/s of infiltration noted. Bed locked in lowest position with side rails up x 3. All needs attended to. Call light within reach. Will continue to monitor. Dr. Olivarez called for K level of 2.9, awaiting call back. Patient stable at this time.
--- NOTE | 2018-12-27 08:13 | NUR ---
NURSE NOTES: Received call back from Dr. Olivarez and received telephone orders for KCl 40 meq PO x 2 doses 4 hours apart and to change IV fluids to D5NS with 40 meq KCl. Orders read back and verified. Dr. Vicente to be contacted for any further any orders if needed.
[2018-12-27] MEDS ORDERED: D5NS w/KCl 40mEq 1000ml 1,000 ML IV SCH ×2 (08:30→18:00)
[2018-12-27] MEDS: Pantoprazole Inj IVP SCH (09:28)
--- NOTE | 2018-12-27 10:00 | NUR ---
NURSE NOTES: Dr. Vicente at bedside. Reported K level of 2.9 and orders given by Dr. Olivarez. Also made aware of episode of sinus tachycardia 140s while patient was moving around in bed. Orders to be placed by Dr. Vicente
--- NOTE | 2018-12-27 10:01 | Nephrology Progress Note ---
Assessment/Plan Assessment/Plan: A/P 1. Alcoholism and at risk for alcoholic withdrawal. - transfer to Tele - MultiVit and IV hydration 2. Pancreatitis, acute. - worse lipase. Change diet to PO as patient c/o worsening abdominal pain with clear liquids 3. Elevated lactic acid, likely due to alcoholic lactic acidosis. - continue IVFs 4. E- Abn- replace K+ and Mg prn Subjective Date patient seen: Dec 27, 2018 Time patient seen: 09:58 ROS Limited/Unobtainable: No Allergies: Coded Allergies: UNABLE TO ASSESS (Unverified , 12/24/18) Subjective Patient c/o of abdominal pain Objective Last 24 Hour Vital Signs Date Time Temp Pulse Resp B/P (MAP) Pulse Ox O2 Delivery O2 Flow Rate FiO2 12/27/18 08:00 98.6 94 21 150/91 (110) 99 12/27/18 06:13 97.5 12/27/18 04:00 97.5 92 20 145/90 (108) 98 12/27/18 04:00 Room Air 12/27/18 04:00 92 12/27/18 00:00 98.3 96 20 140/93 (109) 97 12/27/18 00:00 Room Air 12/27/18 00:00 92 12/26/18 20:00 98.3 100 20 143/82 (102) 99 12/26/18 20:00 95 12/26/18 20:00 Room Air 12/26/18 16:00 98.5 109 21 117/72 (87) 96 12/26/18 16:00 Room Air 12/26/18 16:00 104 12/26/18 12:00 Room Air 12/26/18 12:00 99.2 94 18 138/98 (111) 97 12/26/18 11:36 102 Intake and Output 12/26/18 12/27/18 19:00 07:00 Intake Total 900 ml 2461.0 ml Output Total 6 ml Balance 894 ml 2461.0 ml Intake Oral 900 ml IV Total 2461.0 ml Stool Total 6 ml # Voids 5 # Bowel Movements 3 5 Laboratory Tests 12/27/18 03:40: White Blood Count 5.1, Red Blood Count 4.55L, Hemoglobin 9.1L, Hematocrit 30.8L , Mean Corpuscular Volume 68L, Mean Corpuscular Hemoglobin 20.0L, Mean Corpuscular Hemoglobin Concent 29.5L, Red Cell Distribution Width 21.1H, Platelet Count 158, Mean Platelet Volume 8.1, Neutrophils (%) (Auto) 67.2, Lymphocytes (%) (Auto) 19.2L, Monocytes (%) (Auto) 9.0, Eosinophils (%) (Auto) 2.9, Basophils (%) (Auto) 1.7, Sodium Level 132L, Potassium Level 2.9L, Chloride Level 99, Carbon Dioxide Level 25, Anion Gap 8, Blood Urea Nitrogen 1L , Creatinine 0.5L, Estimat Glomerular Filtration Rate > 60, Glucose Level 102, Calcium Level 7.5L Height (Feet): 5 Height (Inches): 7.00 Weight (Pounds): 151 General Appearance: no apparent distress, alert EENT: normal ENT inspection Neck: normal alignment, supple Cardiovascular: normal rate, regular rhythm Respiratory/Chest: lungs clear Abdomen: non tender, soft Edema: no edema noted Arm (L), no edema noted Arm (R), no edema noted Leg (L), no edema noted Leg (R), no edema noted Pedal (L), no edema noted Pedal (R), no edema noted Generalized Franklin Vicente MD Dec 27, 2018 10:01
[2018-12-27] MEDS ORDERED: Calcium Gluconate 10% 2 GM in NS 110 ML IVPB ONE (10:30)
[2018-12-27] MEDS: LORazepam Inj 2mg/ml 1ml IV PRN (11:17)
--- NOTE | 2018-12-27 15:08 | NUR ---
NURSE NOTES: Diet order clarified with Dr. Vicente, received order for NPO except ice chips and meds d/t elevated lipase and abdominal pain.
--- NOTE | 2018-12-27 15:50 | NUR ---
CASE MANAGEMENT:REVIEW 12/27/18 SI: ALCOHOL POISONING. PANCREATITIS ENCEPHALOPATHY 98.6 92 20 143/75 99% ON RA H/H-9.1/30.8 NA-132 K-2.9 CA-7.5 IS: IVF@75/HR IV ZOSYN Q8HRS IV PROTONIX QD ULTRAM PO Q4HRS PRN ATIVAN PO Q6HRS IV THIAMINE Q24 IV BANANA BAG Q24 : STEP DOWN UNIT
--- NOTE | 2018-12-27 16:30 | NUR ---
NURSE NOTES: Pt transferred from JOANA via bed with GREASER HELPER and RN. Received report from Madelin ARIAS. Awake and oriented and able to make needs known. No acute distress noted. No c/o pain. IV site in LFA 20G patent and asymptomatic and running with D5 w/KCL 40mEq @75ml/hr. Bed in lowest position and locked. On NPO. Pt refused to change to hospital gown. Pt will keep his own clothes. Will continue to plan of care.
--- NOTE | 2018-12-27 16:40 | NUR ---
TRANSFER TO FLOOR: Patient transferred to telemetry room 212-2, per Dr. Vicente. Report given to JUANA Bland. Belongings and medications given to receiving nurse. No family available
[2018-12-27] MEDS ORDERED: LORazepam Inj 2mg/ml 1ml IV PRN (18:00)
[2018-12-27] MEDS ORDERED: traMADol 50mg tab ORAL PRN (18:15)
--- NOTE | 2018-12-27 19:25 | NUR ---
HAND-OFF: Report given to Ryan RN. Pt remains stable.
--- NOTE | 2018-12-27 19:30 | NUR ---
NURSE NOTES: Received report from Cristina Escobar RN. PAtient in bed asleep with no S/S of acute pain or discomfort noted. Came in for ETOH and AMS and acute pancreatitis, currently on NPO status. On IV hydration and ABX TX per MD. IV line intact and patent; placed on continuous cardiac monitoring per protocol. Patient is able to ambulate to the bathroom with minimal assistance. Safety and seizure precaution in place; siderails X2 up and padded, call light within reach, bed in lowest position and free from clutter, brakes and alarm on at all time, Suction equipment available at bedside. Needs and wants anticipated and attended. Will continue plan of care and monitor rd any changes noted.
[2018-12-27] MEDS: LORazepam Inj 2mg/ml 1ml IV SCH (21:30)
[2018-12-27] MEDS ORDERED: LORazepam 1mg tab ORAL SCH (21:30)
[2018-12-27] MEDS ORDERED: Thiamine HCl 100 MG in D5W 55 ML IVPB SCH (22:00)
[2018-12-27] MEDS ORDERED: Folic Acid 1 MG, Magnesium Sulfate 2,000 MG, Multivitamin - 12 Injection 10 ML in Sodiu... IV SCH (22:00)
[2018-12-28] VITALS: BP 130/89
--- NOTE | 2018-12-28 02:04 | NUR ---
NURSE NOTES: Patient in bed asleep with no S/S of distress. Will continue to monitor.
[2018-12-28] MEDS: Piperacillin/Tazobactam 3.375 GM in NS 110 ML IVPB SCH (02:10)
[2018-12-28] MEDS: LORazepam Inj 2mg/ml 1ml IV SCH (03:24)
[2018-12-28 04:00] VITALS: BP 133/84
--- NOTE | 2018-12-28 06:55 | NUR ---
HAND-OFF: Report given to Hina Acosta RN. Endorsed plan of care. PAtient in stable condition.
[2018-12-28 07:21] LABS: BASOPHILS % (AUTO) 1.2 % (0.0-2.0); EOSINOPHILS % (AUTO) 3.6 % (0.0-3.0); HEMATOCRIT 30.1 % (42.0-52.0); HEMOGLOBIN 8.9 G/DL (14.2-18.0); LYMPHOCYTES % (AUTO) 14.7 % (20.0-45.0); MEAN CORPUSCULAR VOLUME 68 FL (80-99); MONOCYTES % (AUTO) 12.8 % (1.0-10.0); NEUTROPHILS % (AUTO) 67.7 % (45.0-75.0); PLATELET COUNT 199 K/UL (150-450); WHITE BLOOD COUNT 5.6 K/UL (4.8-10.8)
--- NOTE | 2018-12-28 07:29 | NUR ---
HAND-OFF: Report given to JUANA Ibarra.
[2018-12-28 07:47] LABS: ANION GAP 7 mmol/L (5-15); BLOOD UREA NITROGEN 2 mg/dL (7-18); CALCIUM 8.3 MG/DL (8.5-10.1); CARBON DIOXIDE 25 MMOL/L (21-32); CHLORIDE 99 MMOL/L (98-107); CREATININE 0.6 MG/DL (0.55-1.30); PHOSPHORUS 3.6 MG/DL (2.5-4.9); POTASSIUM 3.7 MMOL/L (3.5-5.1); SODIUM 131 MMOL/L (136-145)
[2018-12-28 08:00] VITALS: BP 143/97
--- NOTE | 2018-12-28 08:05 | NUR ---
NURSE NOTES: Report received from JUANA Mike. Pt is lying comfortably in semi-fowlers with no signs of distress. Pt is A+Ox2,denies pain/SOB. Respirations are even and unlabored on room air. IV site is intact and running fluids @ prescribed rate. Bed is at lowest position, brakes engaged, siderails x2, bed alarm on, and call light within reach. Pt is in stable condition at this time; will continue to monitor.
--- NOTE | 2018-12-28 08:19 | NUR ---
NURSE NOTES: Patient wants to leave. He said that he hasn't been given food in three days, which is true because he is NPO d/t pancreatitis. Patient is a little confused about when it is, but is ambulatory and steady. He is aware how long he's been in the hospital and how much he wants to leave if he does not receive any food. Spoke with him and told him to stay while I call the doctor for an order to change his diet. Patient said he will stay and see what Dr. Olivarez says. Left message with Dr. Olivarez; awaiting response.
[2018-12-28] MEDS ORDERED: NS 275ml ONE ×3 (08:34)
[2018-12-28] MEDS ORDERED: Tubing IV Secondary IV ONE ×2 (08:34)
--- NOTE | 2018-12-28 08:38 | NUR ---
NURSE NOTES: Patient attempted leaving multiple times. Patient is aware of his surroundings and how to get to where he wants to go. He asked for bus tokens to take to his friend's house. Patient is a little confused about time, but knows where he is and who he is. Patient cannot be reasoned with to stay in the hospital. Patient is consistently walking towards the exits. Discussed with patient risks and benefits. He is aware. Had a mohawk speaking nurse translate everything to patient. Patient signed homelessness paperwork and AMA form. Removed IV and wristband. Patient removed monitor himself. Patient left AMA from floor. Ingredient Scaler, security, and charge nurse aware.
[2018-12-28] MEDS ORDERED: Pantoprazole Inj IVP SCH (09:00)
--- NOTE | 2018-12-28 09:48 | NUR ---
NURSE NOTES: Left message with Dr. Olivarez's office regarding patient going AMA. Awaiting return phone call.
--- NOTE | 2018-12-28 09:52 | NUR ---
NURSE NOTES: Dr. Olivarez returned phone call to say he is aware of patient's AMA status
--- NOTE | 2018-12-28 21:16 | Cardiology Report ---
APPROVED REPORT EKG Measurement Heart [id number] Sinus tachycardia Otherwise normal ECG
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
== END 2018-12-28 08:35 | disposition left against medical advice (07) | DRG 439 ==
LOC: EDBD 13:02 → EMR 14:02 → 2W 15:57 → EDBEDREQ 16:54 → 2W 12-25 13:50 → 2E 12-27 16:43
DX: K85.20 Alcohol induced acute pancreatitis without necrosis or infection (principal); F10.221 Alcohol dependence with intoxication delirium; I69.351 Hemiplegia and hemiparesis following cerebral infarction affecting right dominant side; T51.0X1A Toxic effect of ethanol, accidental (unintentional), initial encounter; R79.89 Other specified abnormal findings of blood chemistry; R41.82 Altered mental status, unspecified; Z59.0 Homelessness; K44.9 Diaphragmatic hernia without obstruction or gangrene; K70.0 Alcoholic fatty liver; D17.79 Benign lipomatous neoplasm of other sites; I10 Essential (primary) hypertension; E78.5 Hyperlipidemia, unspecified; R56.9 Unspecified convulsions
CPT/HCPCS: 36415; 36600; 70450; 71045; 74176; 80048; 80053; 80307; 80329; 81003; 82140; 82150; 82248; 82550; 82553; 82803; 83605; 83690; 83735; 84100; 84484; 85007; 85025; 87040; 87081; 93005; 96361; 96365; 96367; 96368; 96375; 96376; 99291; 99292; J2250; J2405; J7030; J8499